=== PATIENT | female | born 1975 | race Caucasian/White ===

== ENCOUNTER 2024-05-04 14:50 | Emergency (ER) | payer SELFPAY ==
[~2024-05-04] VITALS: Ht 152.4 cm; Wt 68.0 kg
== END 2024-05-04 17:08 | disposition home or self-care (01) ==
LOC: ER 15:00 → EDBD 15:00 → ER 17:08
DX: G89.29 Other chronic pain (principal); Z53.21 Procedure and treatment not carried out due to patient leaving prior to being seen by health care provider